=== PATIENT | male | born 1980 | race Two or more races ===

== ENCOUNTER 2024-03-11 12:50 | Emergency (ER) | payer MEDICAID ==
[~2024-03-11] VITALS: Ht 172.7 cm; Wt 90.7 kg
[2024-03-11 12:58] VITALS: O2SAT 97
[2024-03-11] MEDS ORDERED: HYDROCODONE/APAP 10-325 MG TABLET ONE (13:29)
[2024-03-11] MEDS ORDERED: hydrOXYzine HCL 25 MG TABLET ONE (13:29)
[2024-03-11] MEDS: hydrOXYzine HCL 25 MG TABLET PO ONE (13:30)
[2024-03-11] MEDS: HYDROCODONE/APAP 10-325 MG TABLET PO ONE (13:30)
[2024-03-11] MEDS ORDERED: HYDR-3980 PO (13:34)
[2024-03-11] MEDS ORDERED: HYDR-500 GT (13:34)
== END 2024-03-11 13:48 | disposition home or self-care (01) ==
LOC: ER 12:50
DX: T21.20XA Burn of second degree of trunk, unspecified site, initial encounter (principal); Z79.899 Other long term (current) drug therapy; X08.8XXA Exposure to other specified smoke, fire and flames, initial encounter; Y93.89 Activity, other specified; Y92.89 Other specified places as the place of occurrence of the external cause; Y99.8 Other external cause status
CPT/HCPCS: A4606; A4663